=== PATIENT | male | born 1975 | race Caucasian/White ===

== ENCOUNTER 2021-07-11 13:59 | Emergency (ER) | payer OTHER, MEDICAID ==
[~2021-07-11] VITALS: Ht 167.6 cm; Wt 76.0 kg
[2021-07-11] MEDS ORDERED: NAPR-1176 MT (15:44)
[2021-07-11] MEDS ORDERED: SULF1TAB48 MT (15:44)
[2021-07-11] MEDS ORDERED: ACET-2708 MT (15:44)
[2021-07-11] MEDS ORDERED: SULFAMETHOXAZOLE/TRIMETHOPRIM 800/160MG TABLET PO ONE (15:45)
[2021-07-11] MEDS ORDERED: ACETAMINOPHEN 325MG TABLET PO ONE (15:45)
[2021-07-11] MEDS ORDERED: IBUPROFEN 400MG TABLET PO ONE (15:45)
[2021-07-11 16:08] VITALS: BP 130/82
== END 2021-07-11 16:11 | disposition home or self-care (01) ==
LOC: ER 13:59
DX: L02.31 Cutaneous abscess of buttock (principal)
CPT/HCPCS: 99284

== ENCOUNTER 2023-06-19 09:29 | Emergency (ER) | payer OTHER, MEDICAID ==
[~2023-06-19] VITALS: Ht 167.6 cm; Wt 82.6 kg
[~2023-06-19 09:29] MED LIST: ACET-2708 MT; NAPR-1176 MT; SULF1TAB48 MT
[2023-06-19 09:47] VITALS: O2SAT 98
[2023-06-19 11:03] VITALS: BP 126/84; PULSE 87; RESP 19; TEMP 98
== END 2023-06-19 11:04 | disposition home or self-care (01) ==
LOC: ER 09:42
DX: L02.31 Cutaneous abscess of buttock (principal)
CPT/HCPCS: 99281